=== PATIENT | female | born 1950 | race Caucasian/White ===

== ENCOUNTER 2016-09-29 09:34 | Emergency (ER) | payer MEDICARE, OTHER ==
[~2016-09-29] VITALS: Ht 157.5 cm; Wt 104.5 kg
[~2016-09-29 09:34] MED LIST: ASPI325T32 PO; GABA-500 PO; LISI40TA PO; MECL-114 PO; SIMV5TAB7 PO; [UNRECOGNIZED DRUG - REMARK] PO
[2016-09-29 09:43] VITALS: BP 133/85; PULSE 69; RESP 15; O2SAT 97
--- NOTE | 2016-09-29 11:38 | DRSVH ---
PROCEDURE: CT BRAIN WITHOUT CONTRAST ([id number]) INDICATIONS: FALL AND HIT HEAD; ON ASA TECHNIQUE: Noncontrast 4.5 mm thick angled axial sections acquired from the foramen magnum to the vertex, with c oronal reformats. COMPARISON: None. FINDINGS: Image quality: Excellent. CSF spaces: Basal cisterns are patent. No extra-axial fluid collections. Ventricles are normal in size and shape. Brain: No intracranial hemorrhage, mass, or mass effect. Villegas-white matter interface is preserved. Skull and face: There is a large right periorbital and right frontal subcutaneous soft tissue hemato ma. Calvarium and visualized facial bones appear intact. Sinuses: Visualized sinuses and mastoids are clear. IMPRESSION: 1. No acute intracranial abnormality. 2. Large right frontal and periorbital soft tissue subcutaneous hematoma. Dictated by: Med Pinto M.D. on 09/29/2016 at 11:33 Approved by: Med Pinto M.D. on 09/29/2016 at 11:36
--- NOTE | 2016-09-29 11:41 | DRSVH ---
PROCEDURE: CT CERVICAL SPINE WITHOUT CONTRAST ([id number]) INDICATIONS: FALL AND HIT HEAD; ON ASA TECHNIQUE: Noncontrast 3 mm thick sections acquired from the skull base to the T4 level. Sagittal and coronal r eformats were then constructed. For radiation dose reduction, the following was used: automated exp osure control, adjustment of mA and/or kV according to patient size. COMPARISON: None. FINDINGS: Image quality: Excellent. Bones: No fractures or dislocations. There is straightening of the cervical lordosis. There is mod erate degeneration of the atlantoaxial junction with osteophytosis, joint space narrowing, and soft t issue calcifications. Visualized superior ribs are intact. Soft tissues: Prevertebral soft tissues are normal in thickness. No paravertebral hematomas. No ap ical pneumothoraces. IMPRESSION: 1. No fracture or subluxation. Dictated by: Med Pinto M.D. on 09/29/2016 at 11:36 Approved by: Med Pinto M.D. on 09/29/2016 at 11:39
[2016-09-29] MEDS ORDERED: HYDR25TA4 PO (12:04)
[2016-09-29] MEDS ORDERED: MELA5TAB14 PO (12:04)
--- NOTE | 2016-09-29 12:39 | ED.REPORT ---
HPI-Trauma Multiple Date of Service Sep 29, 2016 ED Provider: Derek Calvo MD 66 year old female with chronically poor gait status post left knee arthroplasty presents to the ER accompanied by her due to a head injury status post mechanical ground level fall this morning. Associated symptoms include neck pain, shoulder pain, and left knee pain which is chronic. Patient denies loss of consciousness. She takes ASA daily. Nursing Notes Stated Complaint: GLF/BUMP ON HEAD Chief Complaint: Multiple Trauma/Fall Nursing Notes Reviewed: Yes Allergies: Coded Allergies: meperidine (Verified Allergy, Intermediate, DOESN'T REMEMBER, 09/29/16) Scheduled ([Water pill]) PO HS Aspirin (Aspirin) 325 Mg Tablet 650 MG PO HS Gabapentin (Gabapentin) 100 Mg Capsule 200 MG PO HS Hydrochlorothiazide (Hydrochlorothiazide) Unknown Strength Tablet Unknown Dose PO DAILY Lisinopril (Lisinopril) 40 Mg Tablet 40 MG PO DAILY Melatonin (Melatonin) Unknown Strength Tablet 2 TABLET PO HS Simvastatin (Simvastatin) 5 Mg Tablet 0 PO HS Scheduled PRN Hydrocodone-Acetaminophen 5-325 mg (Hydrocodone-Acetaminophen 5-325 mg) 1 Each Tablet 1 TABLET PO Q4H PRN PRN For Pain General Time Seen by Provider: 10:44 Chief Complaint Head pain/injury, Neck pain/injury Hx Obtained From: Patient Arrived By: Walk-in Onset Occurred: Just prior to arrival Symptom Duration: Since onset Caused by: Fall from (ground level) Context: Occurred at: Home Location: : Head: Scalp Quality: Painful Severity: Current: Moderate Severity: Maximum: Moderate Associated with: Reports: Neck pain, Denies: Loss of consciousness..., Vomiting Past Medical History Past Medical History none reported Past Surgical History left knee replacement. Smoking History Smoker Current Status UNK Social History Alcohol Use: Denies alcohol use Drug Use: Denies drug use Ambulatory Status Independent Review of Systems GI: Denies: Nausea, Vomiting Musculoskeletal: Reports: Extremity pain (Left Hand), Joint pain (Shoulders, bilaterally), Neck pain, Denies: Back pain, Lumbar pain, Thoracic pain Neurologic: Reports: Headache, Denies: Confusion, Syncope Complete sys rev & neg: except as marked. Physical Exam Initial Vital Signs Vital Signs (First) Date Time Temp Pulse Resp B/P Pulse Ox O2 Delivery O2 Flow Rate FiO2 09/29/16 09:43 36.2 69 15 133/85 97 Room Air Initial VS: Reviewed Skin: Warm, Dry, No cyanosis Psychiatric: Mood/affect normal, Behavior normal, Normal thought content General/Constitutional: Awake, Alert, Well developed, Well nourished Head / Eyes: Normocephalic, PERRL, EOMI 6x6cm hematoma to the right forehead No skin disruption Neck: Atraumatic, Supple, Full range of motion, No swelling, Non-tender, No midline vertebral tend, No masses, No crepitus, No JVD, No tracheal deviation Respiratory / Chest: Atraumatic, Breath sounds NL, Breath sounds = bilat, No respiratory distress, No rales, No rhonchi, No wheezing, No stridor, No chest tenderness, No chest wall deformity, No crepitus Cardiovascular: Heart rate NL, Regular rhythm, Heart sounds NL, Cap refill not delayed, Peripheral circulation NL Abdomen: Atraumatic, Soft, Non-tender, No guarding, No rebound, No distention Back: Atraumatic, Inspection NL, Non-tender, No midline vertebral tend, No paraspinal tenderness, No CVA tenderness Neurologic: Oriented X3, Speech NL, No motor deficits, No sensory deficits Interpretation & Diagnostics CT Head Interpretation IMPRESSION: 1. No acute intracranial abnormality. 2. Large right frontal and periorbital soft tissue subcutaneous hematoma. Dictated by: Med Pinto M.D. on 09/29/2016 at 11:33 Approved by: Med Pinto M.D. on 09/29/2016 at 11:36 Study: Head CT no contrast Interpretation / Wet Read by: Interpret - Radiologist CT C-Spine Interpretation IMPRESSION: 1. No fracture or subluxation. Dictated by: Med Pinto M.D. on 09/29/2016 at 11:36 Approved by: Med Pinto M.D. on 09/29/2016 at 11:39 Study type: CT no contrast Interpretation / Wet Read by: Interpret - Radiologist Re-Eval/Medical Decision Med Decision/Clinical Course 66 year old female with chronically poor gait status post left knee arthroplasty presents to the ER accompanied by her due to a head injury status post mechanical ground level fall this morning. Associated symptoms include neck pain, shoulder pain, and left knee pain which is chronic. Patient denies loss of consciousness. She takes ASA daily. Here in the emergency department patient afebrile with stable vital signs and normal mentation. CT scan of the head and cervical spine demonstrate no acute intracranial abnormality, evidence of hemorrhage or fracture. Patient removed from cervical collar and has no midline tenderness, tenderness to axial loading and has full range of motion of neck. Patient with full range of motion of her shoulders without any evidence of trauma to the extremities chest, abdomen or pelvis. At this time I feel the patient is appropriate for discharge home. Pain treated with oral norco and ice pack. Patient reported significant symptom improvement. Patient prescribed outpatient pain medications and will follow up with primary care physician. Summers return precautions were reviewed in detail patient was discharged in stable condition. Re-Evaluation/Progress : Time of Eval: 13:14 Re-Evaluation/Progress Note: Discussed CT results and plan to discharge. Patient is amenable to the plan. Return precautions given. All other questions addressed. Counseled Regarding: Diagnosis, Need for follow-up, When/why to return to ED Discharge & Departure Impression: Primary Impression: Hematoma Additional Impressions: Fall from ground level Head pain Headache type: unspecified Headache chronicity pattern: unspecified pattern Intractability: not intractable Qualified Code: R51 - Headache Neck pain Disposition: Home Discharge Condition All VS Reviewed: Yes Condition: Stable Additional Instructions: Thank you for seeking care at emergency room. Our primary goal today in the ED was to evaluate you for any life-threatening conditions. Your evaluation was reassuring. You will be discharged with a prescription for Concho. Please take as directed. Do not consume alcohol or drive while taking Concho. You should follow-up with your primary doctor this week. You should return to the ED immediately if you develop worsening pain, nausea, vomiting, numbness, weakness, confusion, or any other concerning signs or symptoms. Thank you for letting us partake in your care today. Referrals: Billie Alejandra DO (PCP) Paulo Attestation Portions of this note were transcribed by Freddy Hewitt. I, Dr. Calvo, personally performed the history, physical exam and medical decision-making; I reviewed and confirmed the accuracy of the information in the transcribed note. Signed by: Paulo Franklin, 09/29/2016 and 13:19 copies to: Billie Alejandra Beck O MD Sep 29, 2016 12:39 FREDDY HEWITT Sep 29, 2016 12:54
[2016-09-29] MEDS ORDERED: HYDR-4003 PO (13:18)
[2016-09-29] MEDS ORDERED: HYDROcodone-APAP 5-325 mg Tablet PO ONE (13:20)
== END 2016-09-29 13:48 | disposition home or self-care (01) ==
LOC: SED 09:55
DX: S00.83XA Contusion of other part of head, initial encounter (principal); W01.0XXA Fall on same level from slipping, tripping and stumbling without subsequent striking against object, initial encounter; Y93.89 Activity, other specified; Y92.009 Unspecified place in unspecified non-institutional (private) residence as the place of occurrence of the external cause; Y99.8 Other external cause status; M54.2 Cervicalgia; M25.511 Pain in right shoulder; M25.512 Pain in left shoulder; M25.562 Pain in left knee; Z79.82 Long term (current) use of aspirin; Z88.5 Allergy status to narcotic agent